=== PATIENT | male | born 1980 | race Caucasian/White ===

== ENCOUNTER 2017-03-30 07:45 | Emergency (ER) | payer OTHER ==
[~2017-03-30] VITALS: Ht 182.9 cm; Wt 92.0 kg
[2017-03-30] MEDS ORDERED: INSU100V8 SQ (08:30)
[2017-03-30] MEDS ORDERED: METF10002 PO (08:30)
[2017-03-30] MEDS ORDERED: GABA600T2 PO (08:35)
[2017-03-30] MEDS ORDERED: IBUPROFEN 200 MG TABLET ONE (08:36)
[2017-03-30 08:52] VITALS: BP 118/82
[2017-03-30] MEDS ORDERED: IBUPROFEN 200 MG TABLET PO ONE (09:00)
== END 2017-03-30 08:57 | disposition home or self-care (01) ==
LOC: ED 08:51
DX: S76.112A Strain of left quadriceps muscle, fascia and tendon, initial encounter (principal); M79.672 Pain in left foot; M79.671 Pain in right foot; X58.XXXA Exposure to other specified factors, initial encounter; Y93.89 Activity, other specified; Y99.8 Other external cause status; Y92.009 Unspecified place in unspecified non-institutional (private) residence as the place of occurrence of the external cause
CPT/HCPCS: 99283

== ENCOUNTER 2017-05-01 10:07 | Emergency (ER) | payer OTHER ==
[~2017-05-01] VITALS: Ht 182.9 cm; Wt 91.1 kg
[~2017-05-01 10:07] MED LIST: GABA600T2 PO; INSU100V8 SQ; METF10002 PO
[2017-05-01] MEDS ORDERED: MORPHINE SULFATE 4 MG/ML, 1ML ONE (10:36)
[2017-05-01] MEDS ORDERED: ONDANSETRON 2MG/ML, 2ML ONE (10:37)
[2017-05-01 10:58] LABS: BLOOD UREA NITROGEN 12 mg/dL (7-18)
[2017-05-01] MEDS ORDERED: MORPHINE SULFATE 4 MG/ML, 1ML IV PRN (11:00)
[2017-05-01] MEDS ORDERED: AMPICILLIN/SULBACTAM 3 GM in SODIUM CHLORIDE 0.9% 100 ML IVPB ONE (11:00)
[2017-05-01] MEDS ORDERED: ONDANSETRON 2MG/ML, 2ML IVPush ONE (11:00)
[2017-05-01] MEDS ORDERED: SODIUM CHLORIDE 0.9% 1,000ML IVBOLUS ONE (11:30)
[2017-05-01 11:37] LABS: FIO2 ROOM AIR %
[2017-05-01 12:55] VITALS: BP 127/89
== END 2017-05-01 12:57 | disposition home or self-care (01) ==
LOC: ED 10:28
DX: K02.9 Dental caries, unspecified (principal); L03.211 Cellulitis of face; E11.65 Type 2 diabetes mellitus with hyperglycemia; Z79.84 Long term (current) use of oral hypoglycemic drugs
CPT/HCPCS: 36415; 80048; 82010; 82803; 82962; 85025; 96365; 96375; 99284; J0295; J2405; J7030